=== PATIENT | female | born 1955 | race Caucasian/White ===

== ENCOUNTER 2018-02-07 11:23 | Emergency (ER) | payer OTHER ==
[~2018-02-07] VITALS: Ht 152.4 cm; Wt 71.7 kg
[2018-02-07 11:29] VITALS: Ht 152.4 cm; Wt 71.7 kg
[2018-02-07 12:07] LABS: BASOPHIL % 0.6 % (0-2); PLATELET COUNT 230 x10^3mcL (130-400); RED CELL DISTRIBUTION WIDTH 14.4 % (11.5-14.5)
[2018-02-07 12:17] LABS: CALCIUM 9.4 mg/dL (8.5-10.1); CARBON DIOXIDE 24.7 mmol/L (21-32); CHLORIDE SERUM 106 mmol/L (98-107); CREATININE SERUM 0.7 mg/dL (0.6-1.0); GFR1 > 60 mL/min; GLUCOSE SERUM 121 mg/dL (74-106); POTASSIUM SERUM 4.1 mmol/L (3.5-5.1); SODIUM SERUM 140 mmol/L (136-145)
[2018-02-07 12:21] LABS: ALKALINE PHOSPHATASE 63 U/L (46-116); ALT/SGPT 43 U/L (14-59); AST/SGOT 21 U/L (15-37); BILIRUBIN TOTAL 0.6 mg/dL (0.20-1.00); LIPASE 165 IU/L (73-393); TOTAL PROTEIN, SERUM 7.5 g/dL (6.4-8.2)
[2018-02-07 14:25] VITALS: BP 147/87
== END 2018-02-07 14:25 | disposition home or self-care (01) ==
LOC: ED 11:23
PROVIDERS: Emergency Medicine
DX: N39.0 Urinary tract infection, site not specified (principal); R53.1 Weakness; Z88.1 Allergy status to other antibiotic agents; Z90.49 Acquired absence of other specified parts of digestive tract; Z87.19 Personal history of other diseases of the digestive system
CPT/HCPCS: J7030